=== PATIENT | male | born 2000 | race Caucasian/White ===

== ENCOUNTER 2020-09-13 06:39 | Day surgery (SDC) | payer BC ==
[2020-09-11 15:28] VITALS: BMI 28.5
[2020-09-13] MEDS ORDERED: EPINEPHrine/PF 1 MG/1 ML (1:1,000) AMPULE ONE (07:16)
[2020-09-13] MEDS ORDERED: LIDOCAINE HCL 1%, 10 MG/ML (20ML VIAL) ONE (07:16)
[2020-09-13] MEDS ORDERED: BUPIVACAINE HCL/PF 0.5% (5MG/ML) 10 ML VIAL ONE (07:17)
[2020-09-13] MEDS ORDERED: PROPOFOL 20 ML ONE ×2 (07:31)
[2020-09-13] MEDS ORDERED: ROCURONIUM BROMIDE 50 MG/5 ML SYRINGE ONE ×3 (07:31→10:55)
[2020-09-13] MEDS ORDERED: fentaNYL CITRATE 250 MCG/5 ML VIAL ONE (07:31)
[2020-09-13] MEDS ORDERED: MIDAZOLAM HCL 2 MG/2 ML SINGLE DOSE VIAL ONE ×2 (07:31)
[2020-09-13] MEDS ORDERED: BUPIVACAINE LIPOSOME/PF (EXPAREL) 266 MG/20 ML VIAL ONE (07:36)
[2020-09-13] MEDS ORDERED: SEVOFLURANE 250 ML BTL ONE (07:36)
[2020-09-13] MEDS ORDERED: LIDOCAINE HCL/PF 2% SDV 5ML VIAL ONE (08:10)
[2020-09-13] MEDS ORDERED: ONDANSETRON 4 MG/2 ML VIAL ONE ×2 (08:17→12:08)
[2020-09-13] MEDS ORDERED: DEXAMETHASONE SOD PHOSPHATE 4 MG/1 ML VIAL ONE (08:17)
[2020-09-13] MEDS ORDERED: ceFAZolin SODIUM 1 GM VIAL ONE (08:30)
[2020-09-13] MEDS ORDERED: EPHEDRINE SULFATE/0.9% NACL/PF 50 MG/10 ML SYRINGE NR ONE (09:34)
[2020-09-13] MEDS ORDERED: ACETAMINOPHEN INJECTION 100 ML IVPB ONE (11:17)
[2020-09-13] MEDS ORDERED: NEOSTIGMINE METHYLSULFATE 0.5 MG/ML - 10 ML MDV ONE (11:40)
[2020-09-13] MEDS ORDERED: GLYCOPYRROLATE 0.2 MG/1 ML VIAL ONE (11:41)
[2020-09-13] MEDS ORDERED: SUCCINYLCHOLINE CHLORIDE 200 MG/10 ML SYRINGE ONE (11:56)
[2020-09-13] MEDS ORDERED: ACETAMINOPHEN 325 MG TABLET (FP) PO PRN ×3 (12:36→13:15)
[2020-09-13] MEDS ORDERED: ONDANSETRON 4 MG/2 ML VIAL IVPUSH PRN ×2 (12:36→12:39)
[2020-09-13] MEDS ORDERED: diazePAM 5 MG TABLET PO PRN (12:36)
[2020-09-13] MEDS ORDERED: LACTATED RINGERS SOLUTION 1,000 ML IV SCH (12:45)
[2020-09-13] MEDS ORDERED: oxyCODONE HCL 5 MG TABLET PO PRN ×2 (12:45→13:15)
[2020-09-13] MEDS: CEFAZOLIN 1 GM/D5W 1 GM/50 ML BAG IVPB SCH ×2 (15:50→21:06)
[2020-09-13] MEDS: oxyCODONE HCL 5 MG TABLET PO PRN (17:18)
[2020-09-14] MEDS: CEFAZOLIN 1 GM/D5W 1 GM/50 ML BAG IVPB SCH (03:00)
[2020-09-14] MEDS: oxyCODONE HCL 5 MG TABLET PO PRN (04:44)
[2020-09-14 06:11] VITALS: BP 114/46; PULSE 65; TEMP 97.6
[2020-09-14] MEDS ORDERED: ENOXAPARIN NA (PORCINE) 40 MG/0.4 ML DISP.SYRIN SQ SCH (10:00)
== END 2020-09-14 11:38 | disposition home or self-care (01) ==
LOC: FASUSAT 06:39 → FM/S 12:39 → FASUSAT 09-14 11:38
PROVIDERS: ATTEND Surgery Plastic and Reconstructive Surgery
PROC: 0J080ZZ Alteration of Abdomen Subcutaneous Tissue and Fascia, Open Approach (ICD-10-PCS; principal; 2020-09-13 08:35)
PROC: 0HBV0ZZ Excision of Bilateral Breast, Open Approach (ICD-10-PCS; 2020-09-13 08:35)
DX: N62 Hypertrophy of breast (principal); L98.7 Excessive and redundant skin and subcutaneous tissue; R63.4 Abnormal weight loss
CPT/HCPCS: 88300-TC; 88304-TC; 94760; J0131